=== PATIENT | female | born 1975 | race Caucasian/White ===

== ENCOUNTER → 2016-12-26 | Outpatient (REF) | payer OTHER ==
[~2016-12-26] MED LIST: ABIL10TA OR; EFFE75CA75 OR; LYRI200C OR; PREG100CA OR
== END ==
LOC: M SFHCWAGY 11:44
PROVIDERS: ATTEND Nurse Practitioner Women's Health
DX: R87.612 Low grade squamous intraepithelial lesion on cytologic smear of cervix (LGSIL) (principal)

== ENCOUNTER 2017-01-12 09:23 | Inpatient (IN) | payer OTHER ==
[~2017-01-12] VITALS: Ht 154.9 cm; Wt 59.4 kg
[2017-01-12] MEDS ORDERED: LAMO100T68 PO (09:42)
[2017-01-12] MEDS ORDERED: BREO1INH3 INH (09:42)
[2017-01-12] MEDS ORDERED: AMIT150T PO (09:42)
[2017-01-12] MEDS ORDERED: ALBU17IN INH (09:42)
[2017-01-12] MEDS ORDERED: CLON1TAB PO (09:42)
[2017-01-12] MEDS ORDERED: VITA50003 PO (09:42)
[2017-01-12] MEDS ORDERED: GABA600T PO (09:42)
[2017-01-12] MEDS ORDERED: DEXE1TAB2 PO (09:42)
[2017-01-12] MEDS ORDERED: ALBU83IN INH (09:42)
[2017-01-12] MEDS ORDERED: LITH45TASA PO (09:42)
[2017-01-12] MEDS ORDERED: ZANA4CAP PO (09:42)
[2017-01-12] MEDS ORDERED: CLON1TAB (09:42)
[2017-01-12] MEDS ORDERED: TRIH2TAB3 PO (09:43)
[2017-01-12] MEDS ORDERED: NS 1,000 ML IV ONE (10:45)
[2017-01-12] MEDS ORDERED: KETOROLAC 30 MG/ML VIAL (J1885) IV ONE (10:45)
[2017-01-12] MEDS ORDERED: CEFTAROLINE FOSAMIL 600 MG in D5W MINI-BAG PLUS 50 ML IV ONE (10:45)
[2017-01-12 10:52] LABS: BASO # 0.1 K/mm3 (0.0-0.2); BASO % 0.6 % (0.0-1.0); EOS # 0.3 K/mm3 (0.0-0.50); EOS % 1.9 % (0.0-3.0); LARGE UNSTAINED CELL # 0.1 K/mm3 (0.0-0.4); LARGE UNSTAINED CELL % 0.9 % (0.0-4.0); LYMPH # 2.3 K/mm3 (1.5-4.5); LYMPH % 15.4 % (24.0-44.0); MEAN CORPUSCULAR HEMOGLOBIN 31.4 pg (27.0-33.0); MEAN CORPUSCULAR HGB CONC 32.6 g/dl (32.0-36.5); MEAN CORPUSCULAR VOLUME 96.4 fl (80.0-96.0); MONO # 0.5 K/mm3 (0.0-0.8); MONO % 3.8 % (0.0-5.0); NEUTROPHILS # 11.1 K/mm3 (1.8-7.7); NEUTROPHILS % 77.5 % (36.0-66.0); PLATELET COUNT, AUTOMATED 338 k/mm3 (150-450); RED CELL DISTRIBUTION WIDTH 12.3 % (11.5-14.5); WHITE BLOOD COUNT 14.3 K/mm3 (4.0-10.0)
[2017-01-12 11:14] LABS: ANION GAP 7 MEQ/L (8-16); BLOOD UREA NITROGEN 5 MG/DL (7-18); CALCIUM LEVEL 9.1 MG/DL (8.5-10.1); CARBON DIOXIDE LEVEL 25 MEQ/L (21-32); CHLORIDE LEVEL 106 MEQ/L (98-107); CREATININE FOR GFR 0.73 MG/DL (0.55-1.02); GLOMERULAR FILTRATION RATE > 60.0 (>58); GLUCOSE, FASTING 88 MG/DL (70-105); POTASSIUM SERUM 4.1 MEQ/L (3.5-5.1); SODIUM LEVEL 138 MEQ/L (136-145)
[2017-01-12 11:20] LABS: LITHIUM LEVEL 0.79 MEQ/L (0.60-1.20)
[2017-01-12] MEDS ORDERED: PERCOCET 5MG/325MG TAB PO ONE (11:45)
--- NOTE | 2017-01-12 11:51 | REP ---
Left foot four views : There is no fracture or dislocation. Mineralization and joint spaces are normal. There are no calcifications or foreign bodies. Impression: Negative left foot . Signed by Ashwin Antonio MD 01/12/2017 11:42 A
[2017-01-12] MEDS ORDERED: IPRATROPIUM 0.5MG/ALBUTEROL 2.5MG INH SOL UD 3ML (DUONEB)(J7620) NEB PRN (12:00)
[2017-01-12] MEDS ORDERED: TRAM50TA2 PO (13:11)
[2017-01-12] MEDS ORDERED: ZONI100C2 PO (13:11)
[2017-01-12] MEDS ORDERED: ALEV220T26 PO (13:11)
[2017-01-12] MEDS ORDERED: BENZ1TA PO (13:11)
[2017-01-12] MEDS ORDERED: ARIP1TAB2 PO (13:11)
[2017-01-12] MEDS ORDERED: ZONI50CA3 PO (13:11)
[2017-01-12 14:00] VITALS: BP 131/77
[2017-01-12] MEDS ORDERED: tiZANidine 4 MG TAB PO PRN (14:00)
[2017-01-12] MEDS ORDERED: traMADol 50 MG TAB PO PRN (14:00)
--- NOTE | 2017-01-12 14:02 | HPEPDOC ---
General Date of Admission Jan 12, 2017 at 11:57 Chief Complaint The patient is a 41-year-old female Presented to the ER with left foot redness and swelling. History of Present Illness Patient is a 41 year old female with a PMHx of Bipolar disorder, Anxiety, Depression and COPD (Dx 1 year prior) who presented to the ER with complaints of left foot redness and pain. She notes that 5 days ago she was outdoors and noticed a blister formation on her foot. She denied any trauma or insect bites that she can recall. She decided to wait a few days for the symptoms to resolve. However after 4 days, there was worsening of her blister and it had begun to develop surrounding redness, pain and warmth. She noted that the blister had some drainage from it and had changed color to black. At this point she sought medical attention at [facility]. She was given IV fluid hydration and a script for antibiotics that she did not fill. She denied any fevers at home, but did not that she had chills. She denied any nausea or vomiting. She also noted difficulty with ambulation because of the pain. She denied any chest pain, shortness of breath, cough, abdominal pain, nausea, vomiting, constipation, diarrhea or dysuria. She denies any muscle weakness or numbness. Home Medications Scheduled Amitriptyline HCl (Amitriptyline HCl) 150 Mg Tab, 150 MG PO QHS, (Reported) Aripiprazole (Aripiprazole) 20 Mg Tab, 20 MG PO DAILY, (Reported) Benztropine Mesylate (Benztropine Mesylate) 1 Mg Tab, 1 MG PO DAILY, (Reported) Dextroamphetamine Sulfate (Dexedrine) 10 Mg Tab, 10 MG PO TID, (Reported) Ergocalciferol (Vitamin D) 50,000 Unit Cap, 50,000 UNITS PO ASDIRECTED, ( Reported) WEEKLY - [place] Fluticasone/Vilanterol (Breo Ellipta 200-25 Mcg/INH) 1 Inh Inh, 1 PUFF INH DAILY , (Reported) Gabapentin (Gabapentin) 600 Mg Tab, 600 MG PO DAILY, (Reported) Lamotrigine (Lamotrigine ER) 100 Mg Tab, 100 MG PO BID, (Reported) Hundred Carbonate (Hundred Carbonate ER) 450 Mg Tabcr, 450 MG PO BID, (Reported) Trihexyphenidyl HCl (Trihexyphenidyl HCl) 2 Mg Tab, 2 MG PO BID, (Reported) Zonisamide (Zonisamide) 50 Mg Cap, 50 MG PO DAILY, (Reported) Zonisamide (Zonisamide) 100 Mg Cap, 100 MG PO QHS, (Reported) Scheduled PRN Albuterol Sulfate (Albuterol Sulfate) 2.5 Mg/3 Ml Nebu, 2.5 MG INH Q6H PRN for SHORTNESS OF BREATH, (Reported) Albuterol Sulfate (Ventolin Hfa) 200 Puff/8 Gm Aers, 2 PUFF INH Q6H PRN for SHORTNESS OF BREATH, (Reported) Clonazepam (Clonazepam) 1 Mg Tab, 1 MG PO TID PRN for ANXIETY, (Reported) Naproxen Sodium (Aleve) 220 Mg Tab, 440 MG PO Q8H PRN for PAIN, (Reported) Tizanidine Hydrochloride (Zanaflex) 4 Mg Cap, 4 MG PO TID PRN for MUSCLE SPASMS, (Reported) Tramadol HCl (Tramadol HCl) 50 Mg Tab, 100 MG PO TID PRN for PAIN, (Reported) Allergies Coded Allergies: No Known Drug Allergy (Unverified Allergy, Unknown, 10/23/12) Past Medical History Medical History Bipolar disorder, Anxiety, Depression and COPD (Dx 1 year prior) Surgical History None reported Family History - Mother no reported problems - Father unknown - No history of malignancies Social History - Denies the use of alcohol; Current smoker of >25 years at 0.5 ppd; Occasionally smoked marijuana - Denies recent travel or sick contacts - Lives with son - Occupation; disability Review of Symptoms Other systems Constitutional: Positive weight loss, no change in appetite, or recent trauma Eyes: No visual changes or eye pain Ears, Nose, Throat: Denies nose bleeds, or difficulty swallowing Cardiovascular: Denies chest pain, sweating, or orthopnea Respiratory: Denies cough, wheezing, or shortness of breath GI: Ramiro nausea, vomiting, abdominal pain, diarrhea or constipation : Denies pain with urination or frequency Musculoskeletal: Denies joint pain or swelling Neuro / Psych: Denies muscle weakness or sensory loss Skin: Blister on her left foot All other review of systems negative; otherwise stated in history of present illness Vital Signs - Vitals: BP 118/68, HR 88, RR 18, Sat 98%RA, Temp 97.8F - General: Lying in bed, No acute distress, Speaking in full sentences, AAOx3 - HEENT: NC, AT, PERRLA, EOMI - CVS: RRR, +S1S2, - Murmurs / rubs / gallops - Lungs: Fair air entry bilaterally, Clear to auscultation, No wheezing / rales / rhonchi - Abdomen: Soft, Non-distended, Non-tender, + Bowel sounds x 4 - Extremities: + PPx4, No lower extremity edema, No calf tenderness - Neuro: No focal motor or sensory deficit - Skin: Left foot with blister of 2.5cm in diameter (dark, drainage noted serosanginous), surrounding erythema, warmth and tenderness extending up to the ankles, area has been demarcated with pen Laboratory Data Labs 24H Laboratory Tests 2 01/12/17 10:39: White Blood Count 14.3H, Red Blood Count 4.39, Hemoglobin 13.8, Hematocrit 42.3 , Mean Corpuscular Volume 96.4H, Mean Corpuscular Hemoglobin 31.4, Mean Corpuscular Hemoglobin Concent 32.6, Red Cell Distribution Width 12.3, Platelet Count 338, Neutrophils (%) (Auto) 77.5H, Lymphocytes (%) (Auto) 15.4L, Monocytes (%) (Auto) 3.8, Eosinophils (%) (Auto) 1.9, Basophils (%) (Auto) 0.6, Neutrophils # (Auto) 11.1H, Lymphocytes # (Auto) 2.3, Monocytes # (Auto) 0.5, Eosinophils # (Auto) 0.3, Basophils # (Auto) 0.1, Large Unclassified Cells % 0.9 , Large Unclassified Cells # 0.1, Anion Gap 7L, Glomerular Filtration Rate > 60.0, Blood Urea Nitrogen 5L, Creatinine 0.73, Sodium Level 138, Potassium Level 4.1, Chloride Level 106, Carbon Dioxide Level 25, Calcium Level 9.1, C- Reactive Protein, Quantitative 3.41H, Hundred Level 0.79 CBC/BMP Laboratory Tests 01/12/17 10:39 Red Blood Count 4.39, Mean Corpuscular Volume 96.4 H, Mean Corpuscular Hemoglobin 31.4, Mean Corpuscular Hemoglobin Concent 32.6, Red Cell Distribution Width 12.3, Neutrophils (%) (Auto) 77.5 H, Lymphocytes (%) (Auto) 15.4 L, Monocytes (%) (Auto) 3.8, Eosinophils (%) (Auto) 1.9, Basophils (%) ( Auto) 0.6, Neutrophils # (Auto) 11.1 H, Lymphocytes # (Auto) 2.3, Monocytes # ( Auto) 0.5, Eosinophils # (Auto) 0.3, Basophils # (Auto) 0.1, Calcium Level 9.1 Microbiology Microbiology 01/12/17 Blood Culture, Received Pending 01/12/17 Blood Culture, Received Pending 01/12/17 Gram Stain, Received Pending 01/12/17 Wound Culture, Received Pending Plan / VTE VTE Prophylaxis Ordered?: Yes Plan Plan Cellulitis likely 2/2 insect bite - Presented with blister that has worsened over last 5 days - Reported to have pain, redness and warmth of the foot - Physical reveals erythema, tenderness, warmth and draining blister - Leukocytosis noted - Elevated CRP and ESR - XR of foot negative for gas - Blood cultures and wound cultures pending - Will c/w Ceftaroline for MRSA coverage - c/w IV fluid hydration for now - Will start Ketorolac for pain control Bipolar disorder / Anxiety / Depression - c/w Zonisamide, Hundred, Lamotrigine, Gabapentin, Clonazepam, Benztropine, Aripiprazole, Amitriptyline COPD (Dx 1 year prior) - c/w AdvDavide walker PRN DVT prophylaxis - Will start Heparin ANJUM TAYLOR MD Jan 12, 2017 14:02
[2017-01-12] MEDS: NS 1,000 ML IV SCH (14:48)
[2017-01-12] MEDS: HEPARIN SOD (PORCINE) 5000 UNITS/ML VIAL SC SCH ×2 (14:49→21:47)
[2017-01-12] MEDS: KETOROLAC TROMETHAMINE 10 MG TAB PO PRN (16:24)
[2017-01-12 18:00] VITALS: BP 120/71
[2017-01-12] MEDS: ADVAIR DISKUS 250/50 INH PWD INH SCH (19:13)
--- NOTE | 2017-01-12 21:10 | REPUSA ---
Clinical history: cellulitis. Findings: The left common femoral, superficial femoral, popliteal, and other deep venous structures c ompress normally and demonstrate normal color Doppler flow. Normal venous waveforms with augmentation are seen. Impression: No evidence of deep vein thrombosis in the left femoral popliteal venous system.
[2017-01-12] MEDS: ZONISAMIDE 100 MG CAP (ZONEGRAN) PO SCH (21:44)
[2017-01-12] MEDS: LITHIUM CARBONATE 450 MG **CR** TAB PO SCH (21:45)
[2017-01-12] MEDS: lamoTRIgine 100MG TAB PO SCH (21:45)
[2017-01-12] MEDS: AMITRIPTYLINE 50 MG TAB PO SCH (21:45)
[2017-01-12] MEDS: TRIHEXYPHENIDYL 2 MG TAB PO SCH (21:46)
[2017-01-12] MEDS: CEFTAROLINE FOSAMIL 600 MG in D5W MINI-BAG PLUS 50 ML IV SCH (21:47)
[2017-01-12 22:00] VITALS: BP 128/72
[2017-01-13 02:00] VITALS: BP 104/60
[2017-01-13 05:39] LABS: BASO # 0.1 K/mm3 (0.0-0.2); BASO % 0.6 % (0.0-1.0); EOS # 0.4 K/mm3 (0.0-0.50); EOS % 3.9 % (0.0-3.0); LARGE UNSTAINED CELL # 0.2 K/mm3 (0.0-0.4); LARGE UNSTAINED CELL % 2.1 % (0.0-4.0); LYMPH # 3.5 K/mm3 (1.5-4.5); LYMPH % 35.8 % (24.0-44.0); MEAN CORPUSCULAR HEMOGLOBIN 31.8 pg (27.0-33.0); MEAN CORPUSCULAR HGB CONC 32.2 g/dl (32.0-36.5); MONO # 0.5 K/mm3 (0.0-0.8); MONO % 5.1 % (0.0-5.0); NEUTROPHILS # 5.1 K/mm3 (1.8-7.7); NEUTROPHILS % 52.5 % (36.0-66.0); PLATELET COUNT, AUTOMATED 303 k/mm3 (150-450); RED CELL DISTRIBUTION WIDTH 12.3 % (11.5-14.5); WHITE BLOOD COUNT 9.7 K/mm3 (4.0-10.0)
[2017-01-13 05:56] LABS: ALBUMIN 2.6 GM/DL (3.2-5.2); ALBUMIN/GLOBULIN RATIO 0.76 (1.00-1.93); ALKALINE PHOSPHATASE 42 U/L (45-117); ALT/SGPT 21 U/L (12-78); ANION GAP 6 MEQ/L (8-16); AST/SGOT 10 U/L (15-37); BILIRUBIN,TOTAL 0.2 MG/DL (0.2-1.0); BLOOD UREA NITROGEN 6 MG/DL (7-18); CALCIUM LEVEL 8.5 MG/DL (8.5-10.1); CARBON DIOXIDE LEVEL 26 MEQ/L (21-32); CHLORIDE LEVEL 110 MEQ/L (98-107); CREATININE FOR GFR 0.58 MG/DL (0.55-1.02); GLOMERULAR FILTRATION RATE > 60.0 (>58); GLUCOSE, FASTING 86 MG/DL (70-105); MAGNESIUM LEVEL 2.4 MG/DL (1.8-2.4); POTASSIUM SERUM 3.9 MEQ/L (3.5-5.1); SODIUM LEVEL 142 MEQ/L (136-145)
[2017-01-13 06:00] VITALS: BP 100/59
[2017-01-13] MEDS: NS 1,000 ML IV SCH (06:09)
[2017-01-13] MEDS: HEPARIN SOD (PORCINE) 5000 UNITS/ML VIAL SC SCH ×3 (06:10→21:21)
[2017-01-13] MEDS: ADVAIR DISKUS 250/50 INH PWD INH SCH ×2 (07:44→19:34)
[2017-01-13] MEDS: ZONISAMIDE 50 MG CAP (ZONEGRAN) PO SCH (08:28)
[2017-01-13] MEDS: GABAPENTIN 300 MG CAP PO SCH (08:31)
[2017-01-13] MEDS: LITHIUM CARBONATE 450 MG **CR** TAB PO SCH ×2 (08:31→21:20)
[2017-01-13] MEDS: TRIHEXYPHENIDYL 2 MG TAB PO SCH ×2 (08:31→21:21)
[2017-01-13] MEDS: ACETAMINOPHEN TAB 650MG DOSE (2X325MG) PO PRN (08:33)
[2017-01-13] MEDS: ARIPiprazole 10 MG TAB PO SCH (08:33)
[2017-01-13] MEDS: lamoTRIgine 100MG TAB PO SCH ×2 (08:33→21:20)
[2017-01-13] MEDS: BENZTROPINE 1 MG TAB PO SCH (08:34)
[2017-01-13] MEDS ORDERED: VITAMIN D 50,000 UNITS CAPSULE (ERGOCALCIFEROL 1.25MG) PO SCH (09:00)
[2017-01-13 10:00] VITALS: BP 123/78
[2017-01-13] MEDS: CEFTAROLINE FOSAMIL 600 MG in D5W MINI-BAG PLUS 50 ML IV SCH ×2 (10:37→22:22)
--- NOTE | 2017-01-13 11:06 | IPNPDOC ---
Text Note Date of Service The patient was seen on 01/13/17. NOTE Subjective: Patient is a 41 year old female with a PMHx of Bipolar disorder, Anxiety, Depression and COPD (Dx 1 year prior) who presented to the ER with complaints of left foot redness and pain. She was admitted for cellulitis of the left foot, suspected to be 2/2 an insect bite. Patient was seen and examined at the bedside. Currently she notes improvement in her pain and symptoms. Objective: Vitals (See below) General: Lying in bed, no acute distress, comfortable, AAOx3 HEENT: NC, AT CVS: RRR, +S1S2 Lungs: Fair air entry b/l, -w/r/r Abdomen: Soft, ND, NT, +BSx4 Extremities: +PPx4, - Edema, - Calf tenderness Skin: Left foot with blister (in dressing), area of erythema/tenderness/warmth down from demarcation line Assessment and plan: 1. Cellulitis - likely 2/2 insect bite - Presented with blister that has worsened over last 5 days with associated pain , redness and warmth of the foot - Physical reveals erythema, tenderness, warmth and draining blister - has improved from demarcation line - s/p Leukocytosis - XR of foot negative for gas - Blood cultures (01/12): no growth after 24 hours - Wound cultures (01/12) pending - c/w Ceftaroline for MRSA coverage 2. Bipolar disorder / Anxiety / Depression - c/w Zonisamide, [place], Lamotrigine, Gabapentin, Clonazepam, Benztropine, Aripiprazole, Amitriptyline 3. COPD (Dx 1 year prior) - c/w Advair, Duoneb PRN 4. DVT prophylaxis - c/w Heparin VS,Fishbone, I+O VS, Fishbone, I+O Laboratory Tests 01/13/17 05:21 Red Blood Count 3.66 L, Mean Corpuscular Volume 99.0 H, Mean Corpuscular Hemoglobin 31.8, Mean Corpuscular Hemoglobin Concent 32.2, Red Cell Distribution Width 12.3, Neutrophils (%) (Auto) 52.5, Lymphocytes (%) (Auto) 35.8, Monocytes (%) (Auto) 5.1 H, Eosinophils (%) (Auto) 3.9 H, Basophils (%) ( Auto) 0.6, Neutrophils # (Auto) 5.1, Lymphocytes # (Auto) 3.5, Monocytes # (Auto ) 0.5, Eosinophils # (Auto) 0.4, Basophils # (Auto) 0.1, Calcium Level 8.5, Aspartate Amino Transf (AST/SGOT) 10 L, Alanine Aminotransferase (ALT/SGPT) 21, Alkaline Phosphatase 42 L, Total Bilirubin 0.2, Total Protein 6.0 L, Albumin 2.6 L Vital Signs Date Time Temp Pulse Resp B/P (MAP) Pulse Ox O2 Delivery O2 Flow Rate FiO2 01/13/17 10:00 97.4 89 16 123/78 (93) 98 Room Air I&O- Last 24 Hours up to 6 AM 01/13/17 05:59 Intake Total 2177 ml Output Total 2150 ml Balance 27 ml ANJUM TAYLOR MD Jan 13, 2017 11:06
[2017-01-13 14:00] VITALS: BP 133/78
[2017-01-13] MEDS ORDERED: PERCOCET 5MG/325MG TAB PO ONE (17:15)
[2017-01-13 18:00] VITALS: BP 134/85
[2017-01-13] MEDS: clonazePAM 1 MG TAB PO PRN (18:08)
[2017-01-13] MEDS: ZONISAMIDE 100 MG CAP (ZONEGRAN) PO SCH (21:20)
[2017-01-13] MEDS: AMITRIPTYLINE 50 MG TAB PO SCH (21:20)
[2017-01-13 22:00] VITALS: BP 123/76
[2017-01-14] MEDS: HEPARIN SOD (PORCINE) 5000 UNITS/ML VIAL SC SCH ×3 (05:56→22:20)
[2017-01-14 06:00] VITALS: BP 123/76
[2017-01-14 06:09] LABS: BASO % 0.6 % (0.0-1.0); EOS # 0.4 K/mm3 (0.0-0.50); EOS % 4.5 % (0.0-3.0); LARGE UNSTAINED CELL # 0.2 K/mm3 (0.0-0.4); LARGE UNSTAINED CELL % 1.9 % (0.0-4.0); LYMPH # 3.1 K/mm3 (1.5-4.5); LYMPH % 37.6 % (24.0-44.0); MEAN CORPUSCULAR HEMOGLOBIN 31.6 pg (27.0-33.0); MEAN CORPUSCULAR HGB CONC 32.4 g/dl (32.0-36.5); MEAN CORPUSCULAR VOLUME 97.8 fl (80.0-96.0); MONO # 0.5 K/mm3 (0.0-0.8); NEUTROPHILS # 3.9 K/mm3 (1.8-7.7); NEUTROPHILS % 49.4 % (36.0-66.0); PLATELET COUNT, AUTOMATED 334 k/mm3 (150-450); RED CELL DISTRIBUTION WIDTH 12.5 % (11.5-14.5); WHITE BLOOD COUNT 7.9 K/mm3 (4.0-10.0)
[2017-01-14] MEDS: KETOROLAC TROMETHAMINE 10 MG TAB PO PRN (06:16)
[2017-01-14 06:32] LABS: ALBUMIN 2.8 GM/DL (3.2-5.2); ALBUMIN/GLOBULIN RATIO 0.78 (1.00-1.93); ALKALINE PHOSPHATASE 45 U/L (45-117); ALT/SGPT 23 U/L (12-78); ANION GAP 3 MEQ/L (8-16); AST/SGOT 14 U/L (15-37); BILIRUBIN,TOTAL 0.2 MG/DL (0.2-1.0); BLOOD UREA NITROGEN 4 MG/DL (7-18); CALCIUM LEVEL 8.4 MG/DL (8.5-10.1); CARBON DIOXIDE LEVEL 27 MEQ/L (21-32); CHLORIDE LEVEL 110 MEQ/L (98-107); GLOMERULAR FILTRATION RATE > 60.0 (>58); GLUCOSE, FASTING 75 MG/DL (70-105); MAGNESIUM LEVEL 2.5 MG/DL (1.8-2.4); POTASSIUM SERUM 3.6 MEQ/L (3.5-5.1); SODIUM LEVEL 140 MEQ/L (136-145); TOTAL PROTEIN 6.4 GM/DL (6.4-8.2)
[2017-01-14] MEDS: ADVAIR DISKUS 250/50 INH PWD INH SCH ×2 (08:12→19:13)
[2017-01-14] MEDS: ARIPiprazole 10 MG TAB PO SCH (09:48)
[2017-01-14] MEDS: GABAPENTIN 300 MG CAP PO SCH (09:48)
[2017-01-14] MEDS: ZONISAMIDE 50 MG CAP (ZONEGRAN) PO SCH (09:48)
[2017-01-14] MEDS: lamoTRIgine 100MG TAB PO SCH ×2 (09:48→20:37)
[2017-01-14] MEDS: BENZTROPINE 1 MG TAB PO SCH (09:49)
[2017-01-14] MEDS: LITHIUM CARBONATE 450 MG **CR** TAB PO SCH ×2 (09:49→20:37)
[2017-01-14] MEDS: TRIHEXYPHENIDYL 2 MG TAB PO SCH ×2 (09:49→20:36)
[2017-01-14] MEDS: clonazePAM 1 MG TAB PO PRN ×2 (09:54→20:37)
[2017-01-14] MEDS: CEFTAROLINE FOSAMIL 600 MG in D5W MINI-BAG PLUS 50 ML IV SCH ×2 (10:02→22:20)
--- NOTE | 2017-01-14 11:47 | IPNPDOC ---
Text Note Date of Service The patient was seen on 01/14/17. NOTE Subjective: Patient is a 41 year old female with a PMHx of Bipolar disorder, Anxiety, Depression and COPD (Dx 1 year prior) who presented to the ER with complaints of left foot redness and pain. She was admitted for cellulitis of the left foot, suspected to be 2/2 an insect bite. Patient was seen and examined at the bedside. She continues to have improvement in her swelling and pain. She notes that her blister may have increased in size slightly, but has become less tense. Objective: Vitals (See below) General: Lying in bed, no acute distress, comfortable, AAOx3 HEENT: NC, AT CVS: RRR, +S1S2 Lungs: Fair air entry b/l, -w/r/r Abdomen: Soft, ND, NT, +BSx4 Extremities: +PPx4, - Edema, - Calf tenderness Skin: Left foot with blister (in dressing), area of erythema/tenderness/warmth continues to decrease Assessment and plan: 1. Cellulitis - likely 2/2 insect bite - Presented with blister that has worsened over last 5 days with associated pain , redness and warmth of the foot - Physical reveals decreasing erythema, tenderness, warmth and draining blister - s/p Leukocytosis - XR of foot negative for gas - Blood cultures (01/12): no growth after 48 hours - Wound cultures (01/12) negative - c/w Ceftaroline for MRSA coverage - Discussed with Surgery - will avoid debriding blister at this time; will c/w antibiotics - Will transition to oral antibiotics for discharge tomorrow 2. Bipolar disorder / Anxiety / Depression - c/w Zonisamide, [place], Lamotrigine, Gabapentin, Clonazepam, Benztropine, Aripiprazole, Amitriptyline 3. COPD (Dx 1 year prior) - c/w Advair, Duoneb PRN 4. DVT prophylaxis - c/w Heparin VS,Fishbone, I+O VS, Fishbone, I+O Laboratory Tests 01/14/17 05:29 Red Blood Count 3.66 L, Mean Corpuscular Volume 97.8 H, Mean Corpuscular Hemoglobin 31.6, Mean Corpuscular Hemoglobin Concent 32.4, Red Cell Distribution Width 12.5, Neutrophils (%) (Auto) 49.4, Lymphocytes (%) (Auto) 37.6, Monocytes (%) (Auto) 6.0 H, Eosinophils (%) (Auto) 4.5 H, Basophils (%) ( Auto) 0.6, Neutrophils # (Auto) 3.9, Lymphocytes # (Auto) 3.1, Monocytes # (Auto ) 0.5, Eosinophils # (Auto) 0.4, Basophils # (Auto) 0.0, Calcium Level 8.4 L, Aspartate Amino Transf (AST/SGOT) 14 L, Alanine Aminotransferase (ALT/SGPT) 23, Alkaline Phosphatase 45, Total Bilirubin 0.2, Total Protein 6.4, Albumin 2.8 L Vital Signs Date Time Temp Pulse Resp B/P (MAP) Pulse Ox O2 Delivery O2 Flow Rate FiO2 01/14/17 06:00 98.5 98 17 123/76 (92) 97 Room Air I&O- Last 24 Hours up to 6 AM 01/14/17 06:00 Intake Total 2090 ml Output Total 4400 ml Balance -2310 ml ANJUM TAYLOR MD Jan 14, 2017 11:47
[2017-01-14 14:00] VITALS: BP 135/69
[2017-01-14] MEDS: AMITRIPTYLINE 50 MG TAB PO SCH (20:36)
[2017-01-14] MEDS: ZONISAMIDE 100 MG CAP (ZONEGRAN) PO SCH (20:37)
[2017-01-14 22:00] VITALS: BP 117/64
[2017-01-15 00:29] VITALS: BP 118/76
[2017-01-15] MEDS: HEPARIN SOD (PORCINE) 5000 UNITS/ML VIAL SC SCH (05:09)
[2017-01-15 06:00] VITALS: BP 107/61
[2017-01-15 06:14] LABS: BASO % 0.5 % (0.0-1.0); EOS # 0.4 K/mm3 (0.0-0.50); EOS % 4.2 % (0.0-3.0); LARGE UNSTAINED CELL # 0.1 K/mm3 (0.0-0.4); LARGE UNSTAINED CELL % 1.2 % (0.0-4.0); LYMPH # 2.6 K/mm3 (1.5-4.5); LYMPH % 30.1 % (24.0-44.0); MEAN CORPUSCULAR HEMOGLOBIN 31.6 pg (27.0-33.0); MONO # 0.5 K/mm3 (0.0-0.8); MONO % 5.3 % (0.0-5.0); NEUTROPHILS % 58.7 % (36.0-66.0); PLATELET COUNT, AUTOMATED 412 k/mm3 (150-450); RED CELL DISTRIBUTION WIDTH 12.4 % (11.5-14.5); WHITE BLOOD COUNT 8.6 K/mm3 (4.0-10.0)
[2017-01-15 06:27] LABS: ALBUMIN 3.2 GM/DL (3.2-5.2); ALBUMIN/GLOBULIN RATIO 0.78 (1.00-1.93); ALKALINE PHOSPHATASE 50 U/L (45-117); ALT/SGPT 30 U/L (12-78); ANION GAP 6 MEQ/L (8-16); AST/SGOT 25 U/L (15-37); BILIRUBIN,TOTAL 0.3 MG/DL (0.2-1.0); BLOOD UREA NITROGEN 5 MG/DL (7-18); CARBON DIOXIDE LEVEL 26 MEQ/L (21-32); CHLORIDE LEVEL 107 MEQ/L (98-107); CREATININE FOR GFR 0.82 MG/DL (0.55-1.02); GLOMERULAR FILTRATION RATE > 60.0 (>58); GLUCOSE, FASTING 86 MG/DL (70-105); MAGNESIUM LEVEL 2.7 MG/DL (1.8-2.4); POTASSIUM SERUM 3.6 MEQ/L (3.5-5.1); SODIUM LEVEL 139 MEQ/L (136-145); TOTAL PROTEIN 7.3 GM/DL (6.4-8.2)
[2017-01-15] MEDS: ZONISAMIDE 50 MG CAP (ZONEGRAN) PO SCH (07:57)
[2017-01-15] MEDS: BENZTROPINE 1 MG TAB PO SCH (07:57)
[2017-01-15] MEDS: ARIPiprazole 10 MG TAB PO SCH (07:58)
[2017-01-15] MEDS: lamoTRIgine 100MG TAB PO SCH (07:58)
[2017-01-15] MEDS: TRIHEXYPHENIDYL 2 MG TAB PO SCH (07:58)
[2017-01-15] MEDS: LITHIUM CARBONATE 450 MG **CR** TAB PO SCH (07:58)
[2017-01-15] MEDS: ACETAMINOPHEN TAB 650MG DOSE (2X325MG) PO PRN (07:59)
[2017-01-15] MEDS: GABAPENTIN 300 MG CAP PO SCH (07:59)
[2017-01-15] MEDS: ADVAIR DISKUS 250/50 INH PWD INH SCH (08:18)
[2017-01-15] MEDS: CEFTAROLINE FOSAMIL 600 MG in D5W MINI-BAG PLUS 50 ML IV SCH (10:44)
[2017-01-15] MEDS ORDERED: DOXY-278 PO (11:46)
[2017-01-15] MEDS ORDERED: CEFD1CAP8 PO (11:46)
[2017-01-15] MEDS: clonazePAM 1 MG TAB PO PRN (13:56)
[2017-01-15 14:00] VITALS: BP 115/63
--- NOTE | 2017-01-15 15:12 | DSES ---
DATE OF ADMISSION: 01/12/2017 DATE OF DISCHARGE: 01/15/2017 PRIMARY CARE PHYSICIAN: Basia Cody. REFERRING PHYSICIAN: None. CONSULTING PHYSICIAN: None. CONDITION ON DISCHARGE: Stable. FINAL DIAGNOSIS: Cellulitis of the left lower extremity. PROCEDURES: None. HISTORY OF PRESENT ILLNESS: The patient is a 41-year-old female with past medical history of bipolar disorder, anxiety, depression, and chronic obstructive pulmonary disease (COPD) diagnosed one year prior, who presented to the emergency department with complaints of left foot redness and pain. She was admitted for cellulitis of the left foot suspected to be secondary to insect bite. HOSPITAL COURSE: 1. Cellulitis of the left lower extremity, likely secondary to insect bite. Presented with blister that worsened over the last five days, associated with pain, redness, warmth of the foot. Physical initially revealed erythema, tenderness, and warmth and a draining blister which has improved. Upon discharge, this blister has ruptured. The patient is not complaining of any pain. The patient is status post leukocytosis. X-ray acquired of the foot which is negative for gas. Blood cultures and wound cultures were negative. The patient was started on ceftaroline throughout her hospital course for methicillin-resistant Staphylococcus aureus (MRSA) coverage. Discussed with surgery about debriding blister; however, at this time the patient's blister has debrided spontaneously. Will continue with antibiotics at this point. The patient has been transitioned to oral antibiotics with continued coverage for MRSA. She will continue course of doxycycline and cefdinir for completion of seven more days. 2. Bipolar disorder/anxiety/depression. Continue with zonisamide, lithium, lamotrigine, gabapentin, clonazepam, Benztropine, aripiprazole, and amitriptyline. 3. Chronic obstructive pulmonary disease (COPD) diagnosed one year prior. Continue Advair (please clarify) as needed. 4. Deep venous thrombosis (DVT) prophylaxis. She has been put on heparin. DISCHARGE MEDICATIONS The patient will be discharged home on the following medications: - albuterol 2.5 mg inhaled every six hours as needed for shortness of breath - amitriptyline 150 mg by mouth at bedtime - aripiprazole 20 mg by mouth daily - benztropine 1 mg by mouth daily - clonazepam 1 mg by mouth three times a day as needed for anxiety - dextroamphetamine 10 mg by mouth three times a day - vitamin D 50,000 units by mouth as instructed - Breo one puff inhaled daily - gabapentin 600 mg by mouth daily - lamotrigine 100 mg by mouth twice a day - lithium 450 mg by mouth twice a day - naproxen 440 mg by mouth every eight hours as needed for pain - tizanidine 4 mg by mouth three times a day as needed for spasms - tramadol 100 mg by mouth three times a day - trihexyphenidyl 2 mg by mouth twice a day - zonisamide 50 mg by mouth daily - zonisamide 100 mg by mouth at bedtime New medication prescribed include cefdinir 300 mg by mouth twice a day for 14 tablets, and doxycycline 100 mg by mouth every 12 hours for the next seven days. DISCHARGE INSTRUCTIONS: The patient has been advised to followup with her primary care provider. She has been advised to call to confirm/schedule an appointment. She has been advised to remain compliant with treatment plan and medications, and return to the emergency room if she experiences any problems. TIME SPENT ON DISCHARGE: 35 minutes.
== END 2017-01-15 15:10 | disposition home or self-care (01) | DRG 383 ==
LOC: M ED 11:36 → M ED INP 11:57 → M MSPAV 14:06
PROVIDERS: ADMIT Internal Medicine; ATTEND Internal Medicine
DX: L03.116 Cellulitis of left lower limb (principal); J44.9 Chronic obstructive pulmonary disease, unspecified; S80.862A Insect bite (nonvenomous), left lower leg, initial encounter; F31.9 Bipolar disorder, unspecified; F41.9 Anxiety disorder, unspecified; Z79.899 Other long term (current) drug therapy; F17.200 Nicotine dependence, unspecified, uncomplicated; W57.XXXA Bitten or stung by nonvenomous insect and other nonvenomous arthropods, initial encounter; Y92.009 Unspecified place in unspecified non-institutional (private) residence as the place of occurrence of the external cause

== ENCOUNTER → 2017-12-14 | Outpatient (REF) | payer OTHER ==
[2017-12-21 14:16] LABS: HPV HYBRID CAPTURE II Negative (Negative)
== END ==
LOC: M SFHCWAGY 16:12
DX: Z12.4 Encounter for screening for malignant neoplasm of cervix (principal)

== ENCOUNTER → 2018-10-26 | Outpatient (CLI) | payer OTHER ==
[~2018-10-26] MED LIST changes: +ALBU17IN INH; +ALBU83IN INH; +ALEV220T26 PO; +AMIT150T PO; +ARIP1TAB2 PO; +BENZ-52 PO; +BREO1INH3 INH; +CEFD1CAP8 PO; +CLON1TAB8; +CLON1TAB8 PO; +DEXE1TAB2 PO; +DOXY-350 PO; +GABA600T4 PO; +LAMO100T68 PO; +LITH45TASA PO; +TRAM50TA2 PO; +TRIH2TAB3 PO; +VITA50005 PO; +ZANA4CAP PO; +ZONI100C2 PO; +ZONI50CA3 PO
--- NOTE | 2018-10-31 01:59 | ECWPNPC ---
PATIENT NAME: LUKASZ ADAMSON : 1975 GENDER: FEMALE VISIT DATE: 10/26/2018 DISCHARGE DATE: 10/26/18 1537 VISIT LOCKED DATE TIME: PHYSICIAN: ELAYNE CHARLES RESOURCE: ELAYNE CHARLES REASON FOR APPOINTMENT 1. BACK HISTORY OF PRESENT ILLNESS NEW PATIENT CONSULT: WHEN DID YOUR PAIN FIRST START? OTHER. BRIEFLY DESCRIBE HOW YOUR PAIN STARTED? ACHYING, PRESSURE. HOW DOES YOUR PAIN CHANGE WITH TIME? NO. DOES YOUR PAIN AWAKEN YOU FROM SLEEP? , NO. HOW MANY HOURS OF SLEEP DO YOU NORMALLY GET? 5 HOURS. ANY DIAGNOSTIC TESTING? MRI. FACILITY WHERE TESTS WERE DONE? ____. PAIN TREATMENT TREATMENT YES CANCER HAVE YOU EVER HAD ANY TYPE OF CANCER?NO NO. 42 YEAR OLD FEMALE WITH HX OF CHRONIC UPPER AND LOWER BACK PAIN.PAIN IS ALSO SITUATED IN THE BEWTEEN THE SHOULDERS. PATIENT SAYS SHE IS HAVING DIFFCULTY IN ROTATING HER NECK TO LEFT SIDE FROM THE PAIN IN UPPER BACK. PATIENT WAS REFERRED FROM PCP IN [place].MRI 2018 LUMBAR SPINE: DIFFUSE DISC BULGE AT L4-L5 WITH MINIMAL SAC COMPRESSION.DIFFUSE DISC BULGE AT L5-S1.THIS ABUTS THE THECAL SAC AND S1 NERVES.MRI CERVICAL SPINE: NO SIGNIFICANT SPINAL CANAL NEURAL FORMANINAL STENOSIS.CURRENTLY USES IBUPROFEN 200MG PRN. SHE IS TAKING GABAPENTIN 60MMG QID FOR ANXIETY. PAIN SCREENING: PATIENT HAS A COMPLAINT OF ACUTE OR CHRONIC PAIN :YES FALL RISK SCREENING: SCREENING : NO FALLS IN THE PAST YEAR. ARROYO INVENTORY: QUESTIONNAIRE ASSESSEDTBD SCORE VALUE CALCULATED TBD CURRENT MEDICATIONS TAKING LITHIUM CARBONATE 300 MG CAPSULE 1 CAPSULE ORALLY BID TAKING LAMOTRIGINE 100 MG TABLET 2 TABLETS ORALLY TWICE A DAY TAKING ADDERALL 10 MG TABLET 1 TABLET IN THE MORNING ORALLY TID TAKING GABAPENTIN 600 MG TABLET TAKE ONE TABLET BY MOUTH FOUR TIMES A DAY ORAL TAKING VRAYLAR 6 MG CAPSULE TAKE ONE CAPSULE BY MOUTH EVERY MORNING ORAL TAKING IBUPROFEN 200 MG CAPSULE 3-4 TABLET WITH FOOD OR MILK NEEDED ORALLY THREE TIMES A DAY TAKING FLOVENT HFA 220 MCG/ACT AEROSOL 1 PUFF INHALATION TWICE A DAY DISCONTINUED VITAMIN D 56850 UNIT CAPSULE 1 CAPSULE ORALLY WEEKLY DISCONTINUED KLONOPIN 1 MG TABLET 1 TABLET ORALLY TWICE A DAY DISCONTINUED VALIUM 5 MG TABLET 1 TABLET NEEDED ORALLY THREE TIMES A DAY DISCONTINUED BELSOMRA 10 MG TABLET (SCHEDULE IV DRUG) TAKE ONE TABLET BY MOUTH AT BEDTIME MAXIMUM DAILY DOSE 1 ORAL DISCONTINUED IBUPROFEN 400 MG TABLET 1 TABLET WITH FOOD OR MILK NEEDED ORALLY THREE TIMES A DAY DISCONTINUED TRAMADOL HCL 50 MG TABLET 1 TABLET NEEDED ORALLY EVERY 6 HRS DISCONTINUED SPIRIVA HANDIHALER 18 MCG CAPSULE 1 CAPSULE INHALATION ONCE A DAY DISCONTINUED BREO ELLIPTA 100-25 MCG/INH AEROSOL POWDER BREATH ACTIVATED 1 PUFF INHALATION ONCE A DAY DISCONTINUED ZIPRASIDONE HCL 80 MG CAPSULE 1 CAPSULE WITH FOOD ORALLY TWICE A DAY DISCONTINUED ABILIFY 20 MG TABLET 1 TABLET ORALLY ONCE A DAY DISCONTINUED NICOTINE 14 MG/24HR PATCH 24 HOUR 1 PATCH TO SKIN TRANSDERMAL ONCE A DAY MEDICATION LIST REVIEWED AND RECONCILED WITH THE PATIENT PAST MEDICAL HISTORY HEPATITIS C- 1A ANXIETY DISORDER COPD DEPRESSION ABNORMAL PAP SMEAR PTSD NERVE DAMAGE- L SHOULDER TATTOOS AGE OF 19 HISTORY OF COCAINE USE A TEENAGER NO IV DRUG ABUSE NERVE DAMAGE AND CARPAL TUNNEL RIGHT ARM FIBROMYALGIA ALLERGIES N.K.D.A. SURGICAL HISTORY COLPOSCOPY WITH WALT 12/26/16 FAMILY HISTORY FATHER: ALIVE MOTHER: ALIVE, OVARIAN CA, DIAGNOSED WITH HYPERTENSION SIBLINGS: HYPERTENSION, STROKE 1 BROTHER(S) , 3 SISTER(S) - HEALTHY. 1 SON(S) - HEALTHY. 1 SISTER MVA. SOCIAL HISTORY GENERAL: TOBACCO USE ARE YOU A:CURRENT SMOKER ARE YOU INTERESTED IN QUITTING?NOT READY TO QUIT COUNSELED THE PATIENT ON SMOKING EFFECTS, EDUCATION [id number]/05/2019 HOW MANY CIGARETTES A DAY DO YOU SMOKE?21-30 HOW SOON AFTER YOU WAKE UP DO YOU SMOKE YOUR FIRST CIGARETTE?WITHIN 5 MIN HOW OFTEN DO YOU SMOKE CIGARETTES?EVERY DAY PATIENT COUNSELED ON THE DANGERS OF TOBACCO USE AND URGED TO QUIT:10/26/2018 ADDITIONAL FINDINGS: TOBACCO USERMODERATE CIGARETTE SMOKER (10-19 CIGS/DAY) SMOKING CESSATION INFORMATION GIVEN10/26/2018 LATEX QUESTIONNAIRE LATEX ALLERGY : HAVE YOU EVER DEVELOPED ANY TYPE OF REACTION AFTER HANDLING LATEX PRODUCTS SUCH RUBBER GLOVES, CONDOMS, DIAPHRAGMS, BALLOONS, SOCKS, OR UNDERWEAR?NO LATEX ALLERGY : HAVE YOU EVER DEVELOPED ANY TYPE OF REACTION DURING OR AFTER DENTAL APPOINTMENT, VAGINAL/RECTAL EXAMINATION, SURGICAL PROCEDURE, OR ANY OTHER EXPOSURE?NO LATEX RISK : HAVE YOU EVER HAD ANY DIFFICULTY BREATHING OR HIVES AFTER EATING OR HANDLING ANY FRUITS, OR VEGETABLES; SUCH KIWI, BANANAS, STONE FRUITS, OR CHESTNUTSNO LATEX RISK : DO YOU HAVE A PREVIOUS PERSONAL HISTORY OF MORE THAN NINE SURGERIES, SPINA BIFIDA, OR REPEATED CATHERTIZATIONS? NO LATEX RISK : ARE YOU FREQUENTLY EXPOSED TO LATEX PRODUCTS IN YOUR OCCUPATION?NO DATE ASKED : 10/26/2018 ALCOHOL SCREENING DID YOU HAVE A DRINK CONTAINING ALCOHOL IN THE PAST YEAR?YES HOW OFTEN DID YOU HAVE A DRINK CONTAINING ALCOHOL IN THE PAST YEAR?MONTHLY OR LESS (1 POINT) HOW MANY DRINKS DID YOU HAVE ON A TYPICAL DAY WHEN YOU WERE DRINKING IN THE PAST YEAR?1 OR 2 (0 POINTS) HOW OFTEN DID YOU HAVE SIX OR MORE DRINKS ON ONE OCCASION IN THE PAST YEAR?NEVER (0 POINTS) POINTS1 INTERPRETATIONNEGATIVE RECREATIONAL DRUG USE DRUG USE?NO CAFFEINE CAFFEINE USE?YES 3-4 CUPS COFFEE, 3 SODAS ANGLICAN [id number] ATHEIST LANGUAGE LANGUAGES SPOKEN:PUERTO RICAN EDUCATION LEVEL OF EDUCATION:NOT FINISHED HIGH SCHOOL PT. HAS GED LEARNING BARRIERS / SPECIAL NEEDS BARRIERS TO LEARNING?NO HEARING IMPAIRED?NO VISION IMPAIRED?YES :CORRECTIVE LENSES COGNITIVELY IMPAIRED?NO READINESS TO LEARN?YES LEARNING PREFERENCES?NO OCCUPATION: DISABLED. DIET: REGULAR. EXERCISE: NONE. MARITAL STATUS: . OTHERS AT HOME: NONE. PAIN CLINIC PFS, CLERGY, PUBLIC HEALTH REFERRALS PFS REFERRAL NEEDED?NO CLERGY REFERRAL NEEDED?NO PUBLIC HEALTH REFERRAL NEEDED?NO WAS THE PROVIDER NOTIFIED OF ANY PERTINENT INFO?NO HAS THE PATIENT BEEN EDUCATED REGARDING HIS/HER PLAN OF CARE?YES HAS THE PATIENT BEEN EDUCATED REGARDING PAIN, THE RISK FOR PAIN, THE IMPORTANCE OF EFFECTIVE PAIN MANAGEMENT, AND THE PAIN ASSESSMENT PROCESS?YES ADVANCE DIRECTIVE ADVANCE DIRECTIVE DISCUSSED WITH PATIENT:YES 10/26/18 INFORMATION ON HCP GIVEN TO PT. VD HOSPITALIZATION/MAJOR DIAGNOSTIC PROCEDURE RELATED TO CHILDBIRTH LEFT FOOT INFECTION 2015 REVIEW OF SYSTEMS REVIEWED BY: PROVIDER: SUSIE Mendenhall CONSTITUTIONAL: ANY CHANGE IN YOUR MEDICAL CONDITION? NO . CHILLS NO . FEVER NO . INFECTION: DO YOU HAVE NEW INFECTIONS? NO . DO YOU HAVE HISTORY OF MRSA? NO . MUSCULOSKELETAL: ANY NEW PATTERNS OF PAIN OR NUMBNESS? NO . SYTEMIC LUPUS NO . GASTROENTEROLOGY: ANY NEW CHANGE IN BOWEL CONTROL? NO . BARRETTS ESOPHAGUS NO . CIRRHOSIS NO . HEPATITIS YES . LIVER FAILURE NO . ACID REFLUX NO . UNEXPLAINED WEIGHT LOSS NO . GENITOURINARY: ANY NEW CHANGE IN BLADDER CONTROL? NO . IS THERE A CHANCE YOU COULD BE ? NO . HEMATOLOGY/LYMPH: DO YOU TAKE ANY BLOOD THINNERS? (FOR EXAMPLE- COUMADIN, PLAVIX, AGGRENOX, PLATEL, PRADAXA, OR XARELTO) NO . WHEN WAS YOUR LAST DOSE? DATE: TIME: . LOW PLATELET COUNT NO . SICKLE CELL DISEASE NO . VON WILLIEBRANDS NO . FACTOR V LEIDEN NO . THALLASEMIA NO . ANEMIA NO . EASY BRUISING NO . NEUROLOGY: HAVE YOU FALLEN IN THE PAST 12 MONTHS? YES . ANY NEW EXTREMITY NUMBNESS OR WEAKNESS? NO . HEAD INJURY NO . DEMENTIA NO . CEREBRAL PALSY NO . MULTIPLE SCLEROSIS NO . DIZZINESS NO . HEADACHE NO . STROKES NO . VERTIGO NO . CARDIOLOGY: DO YOU HAVE A PACEMAKER OR DEFIBRILLATOR? NO . ANGINA NO . HEART ATTACK NO . HEART SURGERY NO . CONGESTIVE HEART FAILURE/FLUID OVERLOAD NO . CHEST PAIN NO . HIGH BLOOD PRESSURE NO . IRREGULAR HEART BEAT NO . RESPIRATORY: HAVE YOU BEEN SICK IN THE PAST WEEK? NO . FEVER NO . FLU LIKE SYMPTOMS? NO . CPAP NO . BYPAP NO . ASTHMA NO . EMPHYSEMA NO . CHRONIC LUNG DISEASES YES, COPD . SHORTNESS OF BREATH ON EXERTION NO . DO YOU USE ANY TYPE OF TOBACCO (SMOKE, SMOKELESS, CHEW)? NO . COUGH NO . SNORING NO . INTEGUMENTARY: DO YOU HAVE ANY RASHES OR OPEN SORES? NO . ALLERGIC/IMMUNO: ARE YOU ALLERGIC TO IV DYE? NO . ANY NEW ALLERGIES? NO . PSYCHIATRIC: DO YOU HAVE THOUGHTS OF HURTING YOURSELF OR SOMEONE ELSE? NO . ARE YOU ABUSED, NEGLECTED, OR IN AN UNSAFE ENVIRONMENT? NO . ENDOCRINOLOGY: ARE YOU DIABETIC? NO . THYROID DISORDER NO . OTHER: DO YOU NEED ANY PRESCRIPTIONS? NO . IF YES, PLEASE LIST: ____ . ANY NEW PROBLEMS WITH YOUR MEDICATIONS? NO . WHEN DID YOU LAST EAT? ____ . WHEN DID YOU LAST DRINK? ____ . WHAT DID YOU LAST DRINK? ____ . NAME OF PERSON DRIVING YOU HOME? ____ . DO YOU HAVE ANY OTHER QUESTIONS OR CONCERNS NO . VITAL SIGNS WT 143.4 LBS, HT 62.25", BMI 26.02 INDEX, BP 128/79 MM HG, HR 85 /MIN, RR 18 /MIN, TEMP 98.1 F, OXYGEN SAT % 100%, SAFE IN ENV? (Y/N) YES, NA INITIALS CM 1333, REVIEWED BY: VD. EXAMINATION GENERAL EXAMINATION: GENERAL APPEARANCE:NO ACUTE DISTRESS, WELL NOURISHED AND HYDRATED. PSYCHAPPROPRIATE MOOD AND AFFECT . NECK: LIMITED ROM, TENDER TO PALPATION OALONF LEFTSIDED PARACERVICAL MUSCLES. LUNGS:CLEAR TO AUSCULTATION BILATERALLY, NO WHEEZES, RHONCHI, RALES. HEART:NO MURMURS, REGULAR RATE AND RHYTHM. BACK: LIMITED ROM. NORMAL ALIGNMENT OF SPINE.TENDERNESS AT L5 SLR NEG BILATERAL GABRIEL TEST NEG BILATERAL. THORACIC SPINE TENDER TO PALPATION TOWARDS TRAPEZIUS NEAR LEFT SHOULDER. SKIN:NORMAL, NO RASH. NEUROLOGIC EXAM: ALERT AND ORIENTED X 3, DTRS 1-2+ IN ALL 4 EXTREMITIES. ASSESSMENTS PAIN IN THORACIC SPINE - M54.6 (PRIMARY) OTHER CHRONIC PAIN - G89.29 LUMBAGO WITH SCIATICA, RIGHT SIDE - M54.41 TREATMENT PAIN IN THORACIC SPINE START TIZANIDINE HCL TABLET, 2 MG, 1 TABLET NEEDED, ORALLY, AT BED TIME, 30 DAYS, 30, REFILLS 0 NOTES: TRIGGER POINT INJECTION: YOUR EXPERIENCE MATERIAL WAS PRINTED. CLINICAL NOTES: LONG DISCUSSION WITH PATIENT REGARDING THE CARE WE CAN PROVIDE HER AT THE PAIN CENTER. SHE WAS VERY TENDER TO TOUCH IN THE TRAPEZIUS AREA SOTPI TRAPEZIUS-BILATERAL WAS SUGGESTED. LUMBAGO WITH SCIATICA, RIGHT SIDE START IBUPROFEN TABLET, 800 MG, 1 TABLET WITH FOOD OR MILK NEEDED, ORALLY, TWICE A DAY NEEDED FOR PAIN, 30 DAYS, 60, REFILLS 0 PROCEDURE CODES FA211 ESTABILISHED PATIENT [facility] FACILITY CHARGE DISPOSITION & COMMUNICATION FOLLOW UP POST PROCEDURRE, 2 WEEKS (REASON: TPI TRAPEZIUS-BILATERAL) ELECTRONICALLY SIGNED BY BRENDON HAN ON 10/29/2018 AT 08:50 AM EDT DISCLAIMER : THIS IS A VISIT SUMMARY EXTRACTED FROM THE [employer] CHART. IT IS NOT A COPY OF THE [employer] PROGRESS NOTE. JULITA
== END ==
LOC: M PAIN 13:15
PROVIDERS: ATTEND Nurse Practitioner Family
DX: M54.6 Pain in thoracic spine (principal); G89.29 Other chronic pain; M54.41 Lumbago with sciatica, right side; J44.9 Chronic obstructive pulmonary disease, unspecified; M79.7 Fibromyalgia; Z79.891 Long term (current) use of opiate analgesic; Z79.899 Other long term (current) drug therapy; F17.210 Nicotine dependence, cigarettes, uncomplicated; Z86.59 Personal history of other mental and behavioral disorders

== ENCOUNTER → 2019-02-12 | Outpatient (CLI) | payer OTHER ==
--- NOTE | 2019-02-14 00:31 | ECWPNPC ---
PATIENT NAME: LUKASZ ADAMSON : 1975 GENDER: FEMALE VISIT DATE: 02/12/2019 DISCHARGE DATE: 02/12/19 1407 VISIT LOCKED DATE TIME: PHYSICIAN: TERRENCE LORENZO RESOURCE: TERRENCE LORENZO REASON FOR APPOINTMENT 1. POST TPI HISTORY OF PRESENT ILLNESS HISTORY OF PRESENT ILLNESS: PAIN THE PATIENT DESCRIBES THE PAIN... 43 YEAR OLD FEMALE IN FOR CHRONIC PAIN FOLLOW UP. SHE ADMITS TO CANCELLING TPI SHE DOES NOT WANT INJECTIONS. SHE DID NOT START THE TIZANIDINE AN ORDER WAS NOT SENT. SHE RATES HER PAIN AT A 8/10 AND DESCRIBES IT CONTINUOUS AND THAT IT WAKES HER FROM HER SLEEP. FALL RISK SCREENING: SCREENING :NO FALLS REPORTED IN THE LAST YEAR CURRENT MEDICATIONS TAKING LITHIUM CARBONATE 300 MG CAPSULE 1 CAPSULE ORALLY BID TAKING LAMOTRIGINE 100 MG TABLET 2 TABLETS ORALLY TWICE A DAY TAKING ADDERALL 10 MG TABLET 1 TABLET IN THE MORNING ORALLY TID TAKING GABAPENTIN 800 MG TABLET TAKE ONE TABLET BY MOUTH FOUR TIMES A DAY ORALLY TAKING VRAYLAR 6 MG CAPSULE TAKE ONE CAPSULE BY MOUTH EVERY MORNING ORAL TAKING IBUPROFEN 200 MG CAPSULE 3-4 TABLET WITH FOOD OR MILK NEEDED ORALLY THREE TIMES A DAY TAKING FLOVENT HFA 220 MCG/ACT AEROSOL 1 PUFF INHALATION TWICE A DAY TAKING IBUPROFEN 800 MG TABLET 1 TABLET WITH FOOD OR MILK NEEDED ORALLY TWICE A DAY NEEDED FOR PAIN TAKING HYDROCODONE-ACETAMINOPHEN 5-325 MG TABLET 1 TABLET NEEDED ORALLY EVERY 4 HRS NOT-TAKING TIZANIDINE HCL 2 MG TABLET 1 TABLET NEEDED ORALLY AT BED TIME MEDICATION LIST REVIEWED AND RECONCILED WITH THE PATIENT PAST MEDICAL HISTORY HEPATITIS C- 1A ANXIETY DISORDER COPD DEPRESSION ABNORMAL PAP SMEAR PTSD NERVE DAMAGE- L SHOULDER TATTOOS AGE OF 19 HISTORY OF COCAINE USE A TEENAGER NO IV DRUG ABUSE NERVE DAMAGE AND CARPAL TUNNEL RIGHT ARM FIBROMYALGIA CHRONIC BACK PAIN ALLERGIES N.K.D.A. SURGICAL HISTORY COLPOSCOPY WITH WALT 12/26/16 FAMILY HISTORY FATHER: ALIVE MOTHER: ALIVE, OVARIAN CA, DIAGNOSED WITH HYPERTENSION SIBLINGS: HYPERTENSION, STROKE 1 BROTHER(S) , 3 SISTER(S) - HEALTHY. 1 SON(S) - HEALTHY. 1 SISTER MVA. SOCIAL HISTORY GENERAL: TOBACCO USE ARE YOU A:CURRENT SMOKER ARE YOU INTERESTED IN QUITTING?NOT READY TO QUIT COUNSELED THE PATIENT ON SMOKING EFFECTS, EDUCATION [id number]/05/2019 HOW MANY CIGARETTES A DAY DO YOU SMOKE?21-30 HOW SOON AFTER YOU WAKE UP DO YOU SMOKE YOUR FIRST CIGARETTE?WITHIN 5 MIN HOW OFTEN DO YOU SMOKE CIGARETTES?EVERY DAY PATIENT COUNSELED ON THE DANGERS OF TOBACCO USE AND URGED TO QUIT:10/26/2018 ADDITIONAL FINDINGS: TOBACCO USERMODERATE CIGARETTE SMOKER (10-19 CIGS/DAY) SMOKING CESSATION INFORMATION GIVEN10/26/2018 OTHERS AT HOME: NONE. EDUCATION LEVEL OF EDUCATION:NOT FINISHED HIGH SCHOOL PT. HAS GED DIET: REGULAR. LANGUAGE LANGUAGES SPOKEN:TAMAZIGHT RECREATIONAL DRUG USE DRUG USE?NO EXERCISE: NONE. LEARNING BARRIERS / SPECIAL NEEDS BARRIERS TO LEARNING?NO HEARING IMPAIRED?NO VISION IMPAIRED?YES :CORRECTIVE LENSES COGNITIVELY IMPAIRED?NO READINESS TO LEARN?YES LEARNING PREFERENCES?NO PAIN CLINIC PFS, CLERGY, PUBLIC HEALTH REFERRALS PFS REFERRAL NEEDED?NO CLERGY REFERRAL NEEDED?NO PUBLIC HEALTH REFERRAL NEEDED?NO WAS THE PROVIDER NOTIFIED OF ANY PERTINENT INFO?NO HAS THE PATIENT BEEN EDUCATED REGARDING HIS/HER PLAN OF CARE?YES HAS THE PATIENT BEEN EDUCATED REGARDING PAIN, THE RISK FOR PAIN, THE IMPORTANCE OF EFFECTIVE PAIN MANAGEMENT, AND THE PAIN ASSESSMENT PROCESS?YES LATEX QUESTIONNAIRE LATEX ALLERGY : HAVE YOU EVER DEVELOPED ANY TYPE OF REACTION AFTER HANDLING LATEX PRODUCTS SUCH RUBBER GLOVES, CONDOMS, DIAPHRAGMS, BALLOONS, SOCKS, OR UNDERWEAR?NO LATEX ALLERGY : HAVE YOU EVER DEVELOPED ANY TYPE OF REACTION DURING OR AFTER DENTAL APPOINTMENT, VAGINAL/RECTAL EXAMINATION, SURGICAL PROCEDURE, OR ANY OTHER EXPOSURE?NO LATEX RISK : HAVE YOU EVER HAD ANY DIFFICULTY BREATHING OR HIVES AFTER EATING OR HANDLING ANY FRUITS, OR VEGETABLES; SUCH KIWI, BANANAS, STONE FRUITS, OR CHESTNUTSNO LATEX RISK : DO YOU HAVE A PREVIOUS PERSONAL HISTORY OF MORE THAN NINE SURGERIES, SPINA BIFIDA, OR REPEATED CATHERIZATIONS? NO LATEX RISK : ARE YOU FREQUENTLY EXPOSED TO LATEX PRODUCTS IN YOUR OCCUPATION?NO DATE ASKED : 10/26/2018 CAFFEINE CAFFEINE USE?YES 3-4 CUPS COFFEE, 3 SODAS ADVANCE DIRECTIVE ADVANCE DIRECTIVE DISCUSSED WITH PATIENT:YES PT DOES NOT HAVE HCP AND DECLINES INFORMATION AND ASSISTANCE WITH FORM 02/12/19 GNOSTICIST [id number] ATHEIST MARITAL STATUS: . ALCOHOL SCREENING DID YOU HAVE A DRINK CONTAINING ALCOHOL IN THE PAST YEAR?YES HOW OFTEN DID YOU HAVE A DRINK CONTAINING ALCOHOL IN THE PAST YEAR?MONTHLY OR LESS (1 POINT) HOW MANY DRINKS DID YOU HAVE ON A TYPICAL DAY WHEN YOU WERE DRINKING IN THE PAST YEAR?1 OR 2 (0 POINTS) HOW OFTEN DID YOU HAVE SIX OR MORE DRINKS ON ONE OCCASION IN THE PAST YEAR?NEVER (0 POINTS) POINTS1 INTERPRETATIONNEGATIVE OCCUPATION: DISABLED. REVIEWED WITH PT 02/12/19 1327 BV. HOSPITALIZATION/MAJOR DIAGNOSTIC PROCEDURE RELATED TO CHILDBIRTH LEFT FOOT INFECTION 2015 REVIEW OF SYSTEMS REVIEWED BY: PROVIDER: MAXIMILIANO OLIVAS-Andres . CONSTITUTIONAL: ANY CHANGE IN YOUR MEDICAL CONDITION? YES, PT WAS TREATED IN ED LAST NIGHT FOR LOW BACK PAIN. PT STATES SHE WAS TREATED AND GIVEN PRESCRIPTION FOR HYDROCODONE AND IBUPROFEN AND RELEASED. . CHILLS NO . FEVER NO . INFECTION: DO YOU HAVE NEW INFECTIONS? NO . DO YOU HAVE HISTORY OF MRSA? NO . MUSCULOSKELETAL: ANY NEW PATTERNS OF PAIN OR NUMBNESS? YES, PT REPORTS INCREASING INTENSITY OF LOW BACK PAIN . GASTROENTEROLOGY: ANY NEW CHANGE IN BOWEL CONTROL? NO . GENITOURINARY: ANY NEW CHANGE IN BLADDER CONTROL? NO . IS THERE A CHANCE YOU COULD BE ? NO . HEMATOLOGY/LYMPH: DO YOU TAKE ANY BLOOD THINNERS? (FOR EXAMPLE- COUMADIN, PLAVIX, AGGRENOX, PLATEL, PRADAXA, OR XARELTO) NO . WHEN WAS YOUR LAST DOSE? DATE: TIME: . NEUROLOGY: HAVE YOU FALLEN IN THE PAST 12 MONTHS? NO . ANY NEW EXTREMITY NUMBNESS OR WEAKNESS? NO . CARDIOLOGY: DO YOU HAVE A PACEMAKER OR DEFIBRILLATOR? NO . RESPIRATORY: HAVE YOU BEEN SICK IN THE PAST WEEK? NO . FEVER NO . FLU LIKE SYMPTOMS? NO . COUGH NO . INTEGUMENTARY: DO YOU HAVE ANY RASHES OR OPEN SORES? NO . ALLERGIC/IMMUNO: ARE YOU ALLERGIC TO IV DYE? NO . ANY NEW ALLERGIES? NO . PSYCHIATRIC: DO YOU HAVE THOUGHTS OF HURTING YOURSELF OR SOMEONE ELSE? NO . ARE YOU ABUSED, NEGLECTED, OR IN AN UNSAFE ENVIRONMENT? NO . ENDOCRINOLOGY: ARE YOU DIABETIC? NO . OTHER: DO YOU NEED ANY PRESCRIPTIONS? NO . IF YES, PLEASE LIST: ____ . ANY NEW PROBLEMS WITH YOUR MEDICATIONS? NO . WHEN DID YOU LAST EAT? ____ . WHEN DID YOU LAST DRINK? ____ . WHAT DID YOU LAST DRINK? ____ . NAME OF PERSON DRIVING YOU HOME? ____ . DO YOU HAVE ANY OTHER QUESTIONS OR CONCERNS NO . VITAL SIGNS WT 131.8 LBS, HT 62.25", BMI 23.91 INDEX, BP 119/75 MM HG, HR 70 /MIN, RR 18 /MIN, TEMP 97.0 F, OXYGEN SAT % 98%, NA INITIALS AW 1320, REVIEWED BY: BV. EXAMINATION GENERAL EXAMINATION: GENERALNO ACUTE DISTRESS, WELL NOURISHED AND HYDRATED. PSYCHAPPROPRIATE MOOD AND AFFECT . LUNGS:CLEAR TO AUSCULTATION BILATERALLY, NO WHEEZES, RHONCHI, RALES. HEART:NO MURMURS, REGULAR RATE AND RHYTHM. ASSESSMENTS LUMBAGO WITH SCIATICA, RIGHT SIDE - M54.41 (PRIMARY) PAIN IN THORACIC SPINE - M54.6 TREATMENT LUMBAGO WITH SCIATICA, RIGHT SIDE STOP IBUPROFEN TABLET, 800 MG, 1 TABLET WITH FOOD OR MILK NEEDED, ORALLY, TWICE A DAY NEEDED FOR PAIN START DICLOFENAC POTASSIUM TABLET, 50 MG, 1 TABLET, ORALLY, TWICE A DAY, 30 DAY(S), 60 START LIDOCAINE CREAM, 4 %, 1 APPLICATION TO AFFECTED AREA NEEDED, EXTERNALLY, THREE TIMES A DAY, 30 DAYS, 1 TUBE CLINICAL NOTES: 43 YEAR OLD FEMALE IN FOR CHRONIC PAIN FOLLOW UP. GIVEN PRESENTING SYMPTOMS AND RESULTS OF PHYSICAL EXAMINATION RECOMMENDED DICLOFENAC, INCREASING TIZANIDINE (PT HAD NOT STARTED IT WAS NOT SENT), AND THE USE OF LIDOCAINE CREAM WITH FOLLOW UP IN 1 MONTH TO DETERMINE EFFICACY OF TREATMENT. PATIENT HAS EXPRESSED UNDERSTANDING OF AND WAS IN AGREEMENT WITH TX PLAN. GIVEN TIME TO ASK QUESTIONS AND EXPRESS CONCERNS. . PAIN IN THORACIC SPINE INCREASE TIZANIDINE HCL TABLET, 4 MG, 1 TABLET NEEDED EVERY 8 HRS, ORALLY, THREE TIMES A DAY, 30 DAYS, 90 OTHERS STOP IBUPROFEN CAPSULE, 200 MG, 3-4 TABLET WITH FOOD OR MILK NEEDED, ORALLY, THREE TIMES A DAY PREVENTIVE MEDICINE PAIN CLINIC TEACHING: MEDICATIONS PT GIVEN WRITTEN AND VERBAL EDUCATION ON STARTING TIZANIDINE, DICLOFENAC, AND LIDOCAINE CREAM. PT VERBALIZES UNDERSTANDING OF ALL EDUCATION. ALANA JONES 02/12/2019 2:21:23 PM > . PROCEDURE CODES FA211 ESTABILISHED PATIENT [facility] CHARGE DISPOSITION & COMMUNICATION FOLLOW UP 4 WEEKS (REASON: MEDICATION FOLLOW UP ) ELECTRONICALLY SIGNED BY BRENDON YOUNG ON 02/13/2019 AT 10:29 AM EDT DISCLAIMER : THIS IS A VISIT SUMMARY EXTRACTED FROM THE [employer] CHART. IT IS NOT A COPY OF THE [employer] PROGRESS NOTE. MTDD
== END ==
LOC: M PAIN 13:00
PROVIDERS: ATTEND Family Medicine
DX: M54.41 Lumbago with sciatica, right side (principal); M54.6 Pain in thoracic spine; F41.9 Anxiety disorder, unspecified; F32.9 Major depressive disorder, single episode, unspecified; J44.9 Chronic obstructive pulmonary disease, unspecified; F43.10 Post-traumatic stress disorder, unspecified; M79.7 Fibromyalgia; F17.210 Nicotine dependence, cigarettes, uncomplicated; Z79.899 Other long term (current) drug therapy; Z79.891 Long term (current) use of opiate analgesic

== ENCOUNTER 2025-05-22 13:13 | Emergency (ER) | payer OTHER, SELFPAY ==
[~2025-05-22] VITALS: Ht 154.9 cm; Wt 51.7 kg
[~2025-05-22 13:13] MED LIST changes: +ALBU2.5V10 INH; -ALBU83IN INH; -AMIT150T PO; +AMIT150T4 PO; -ARIP1TAB2 PO; +ARIP20TA51 PO; -BENZ-52 PO; +BENZ1TAB5 PO; -CEFD1CAP8 PO; +CEFD1CAP9 PO; -DOXY-350 PO; +DOXY-440 PO; +GABA-1490 PO; -GABA600T4 PO; +LITH450T17 PO; -LITH45TASA PO; -ZONI100C2 PO; +ZONI100C67 PO; +ZONI50CA11 PO; -ZONI50CA3 PO
[2025-05-22 13:14] VITALS: BP 145/80; TEMP 97.1; O2SAT 95
[2025-05-22] MEDS ORDERED: ASPI-1 PO (13:18)
== END 2025-05-22 13:54 | disposition left against medical advice (07) ==
LOC: M ED 13:13
DX: Z53.21 Procedure and treatment not carried out due to patient leaving prior to being seen by health care provider (principal)